=== PATIENT | female | born 1960 | race Caucasian/White ===

== ENCOUNTER 2019-08-27 22:26 | Emergency (ER) | payer OTHER ==
[~2019-08-27] VITALS: Ht 170.2 cm; Wt 102.0 kg
[2019-08-27] MEDS ORDERED: methylPREDNISolone 125MG 2ML VIAL IV ONE (22:45)
[2019-08-27 23:09] LABS: BASO # 0.1 10^3/uL (0.0-0.2); EOS % 13.1 % (0.0-3.0); HEMATOCRIT 44.6 % (36.0-47.0); LYMPH # 1.9 10^3/uL (1.5-5.0); LYMPH % 24.7 % (24.0-44.0); MEAN CORPUSCULAR HEMOGLOBIN 30.4 pg (27.0-33.0); MEAN CORPUSCULAR HGB CONC 33.6 g/dl (32.0-36.5); MEAN CORPUSCULAR VOLUME 90.5 fl (80.0-96.0); MONO # 0.7 10^3/uL (0.0-0.8); MONO % 9.2 % (0.0-5.0); NEUTROPHILS % 51.7 % (36.0-66.0); PLATELET COUNT, AUTOMATED 174 10^3/uL (150-450); RED BLOOD COUNT 4.93 10^6/uL (4.00-5.40); WHITE BLOOD COUNT 7.8 10^3/uL (4.0-10.0)
[2019-08-27] MEDS: COMBIVENT RESPIMAT 100-20MCG INHALER 4GM INH SCH ×3 (23:27→23:38)
[2019-08-27] MEDS ORDERED: CLAR10CA3 PO (23:30)
[2019-08-27] MEDS ORDERED: MELO15TA28 PO (23:30)
[2019-08-27] MEDS ORDERED: MONT10TA10 PO (23:30)
[2019-08-27] MEDS ORDERED: METF10004 PO (23:30)
[2019-08-27] MEDS ORDERED: VENL75CA2 PO (23:32)
[2019-08-27] MEDS ORDERED: AZEL1SPR3 NARES (23:32)
[2019-08-27] MEDS ORDERED: DULO30CA9 PO (23:32)
[2019-08-27 23:48] LABS: ALBUMIN 3.7 GM/DL (3.2-5.2); BILIRUBIN,DIRECT 0.1 MG/DL (0.0-0.2); BILIRUBIN,TOTAL 0.4 MG/DL (0.2-1.0); TOTAL PROTEIN 6.9 GM/DL (6.4-8.2)
--- NOTE | 2019-08-28 00:57 | REP ---
Clinical: Cough and dyspnea . Comparison: None . Findings: The mediastinum and cardiac silhouette are stable and within normal limits for portable technique. The lung anderson are clear without acute consolidation, effusion, or pneumothorax. Skeletal structures are intact. Impression: No acute cardiopulmonary process appreciated. Electronically Signed by Simeon Loja MD 08/28/2019 12:49 A
[2019-08-28 01:16] VITALS: BP 141/58
[2019-08-28] MEDS ORDERED: AZIT500T5 PO (01:19)
[2019-08-28] MEDS ORDERED: PRED10TA2 PO (01:19)
--- NOTE | 2019-08-28 04:34 | ECGEPIP ---
[facility] - ED Test Date: 2019-08-27 Pat Name: BASIA GARY Department: Room: - Gender: Female [employer] Operator: KAYLA : 1960 Requested By: Mark Ortega Order Number: [id number] Reading MD: Mark Srinivasan Measurements Intervals [place] Rate: 97 P: 44 AR: 156 QRS: 42 QRSD: 93 T: 53 QT: 359 QTc: 457 Interpretive Statements SINUS RHYTHM POOR R WAVE PROGRESSION NONSPECIFIC T-WAVE ABNORMALITY NO PRIORS FOR COMPARISON Electronically Signed on 08-28-2019 4:33:59 EDT by Mark Srinivasan
== END 2019-08-28 01:38 | disposition home or self-care (01) ==
LOC: M ED 22:26
DX: J44.1 Chronic obstructive pulmonary disease with (acute) exacerbation (principal); E11.9 Type 2 diabetes mellitus without complications; I10 Essential (primary) hypertension; E78.5 Hyperlipidemia, unspecified; E66.9 Obesity, unspecified; Z79.899 Other long term (current) drug therapy; Z79.84 Long term (current) use of oral hypoglycemic drugs; Z87.891 Personal history of nicotine dependence
CPT/HCPCS: 36600; 71045; 80047; 80076; 82803; 83605; 85025; 87040; 87486; 87581; 87633; 87798; 93005; 93041; 94640; 94760; 96374; 99291; J2930; U0003